=== PATIENT | female | born 1970 | race Caucasian/White ===

== ENCOUNTER → 2018-06-05 16:36 | Outpatient (CLI) | payer MEDICAID, SELFPAY ==
--- NOTE | 2018-06-05 17:42 | RAD_ITS ---
STUDY: X-RAY - ABDOMEN/PELVIS REASON FOR EXAM: Female, 47 years old. Kidney stone TECHNIQUE: 2 frontal views of the abdomen COMPARISON: None. FINDINGS: There is no bowel obstruction. There is air and stool to the level of the rectum. No definite urinary calculi are identified on this study. The visualized osseous structures are within normal limits. RAD/Abdomen Single View IMPRESSION: No bowel obstruction. No definite urinary calculi identified on this study. If indicated, further evaluation with CT can BE performed. Electronically Signed: Pedro Banks, at 22:24 EDT Tel , Service support ,
== END ==
DX: N20.0 Calculus of kidney (principal)
CPT/HCPCS: 74018

== ENCOUNTER → 2018-07-10 15:50 | Outpatient (CLI) | payer MEDICAID, SELFPAY ==
--- NOTE | 2018-07-10 16:00 | RAD_ITS ---
STUDY: X-RAY - ABDOMEN/PELVIS REASON FOR EXAM: Female, 47 years old. Kidney stones TECHNIQUE: Frontal view COMPARISON: None. FINDINGS: Normal visualized lung bases. There is an unremarkable bowel gas pattern. There is no demonstrated free abdominal air. There bilateral kidney stones. Largest stones are in the lower pole of the LEFT kidney measuring up to 2.4 cm. Normal soft tissue structures. Normal visualized osseous structures. RAD/Abdomen Single View IMPRESSION: There is an unremarkable bowel gas pattern. There is no demonstrated free abdominal air. There bilateral kidney stones. Largest stones are in the lower pole of the LEFT kidney measuring up to 2.4 cm. Electronically Signed: Armand Sung MD at 7:26 EDT , Service support ,
== END ==
DX: N20.0 Calculus of kidney (principal)
CPT/HCPCS: 74018